=== PATIENT | female | born 1940 | race Hispanic/Latino ===

== ENCOUNTER 2021-04-14 11:01 | Emergency (ER) | payer MEDICARE, OTHER ==
[2021-04-14] MEDS ORDERED: LIDOCAINE VISCOUS 2% 15 ML ORAL LIQD PO ONE (13:11)
[2021-04-14] MEDS ORDERED: FAMOTIDINE 20 MG TAB PO ONE (13:11)
[2021-04-14] MEDS ORDERED: ALUM-MAG HYDROXIDE-SIMETHICONE 200-200-20MG/5ML ORAL LIQD 30 ML PO ONE (13:11)
--- NOTE | 2021-04-14 13:11 | Emergency Department Report ---
- General Chief Complaint: Sore Throat Stated Complaint: SHORT OF BREATH/THROAT PAIN Time Seen by Provider: 04/14/21 12:49 Source: EMS Mode of arrival: Stretcher Limitations: No Limitations - History of Present Illness Initial Comments: Patient is a 80-year-old female presents emergency room with complaints of a sore throat that began last night. She states it feels like a burning sensation as initiated above her. She is still able to swallow. She states that she has some mild shortness of breath but she believes this is due to her sore throat. She denies any fever, chest pain, cough, vomiting, diarrhea, ear pain, throat swelling. She denies any medication allergies. - Related Data Previous Rx's Medication Instructions Recorded Last Taken Type Famotidine [Pepcid] 40 mg PO QHS #14 tablet 04/14/21 Unknown Rx Nystas/Diphen/Xyl Visc/Mylanta 30 ml MM Q4H PRN #300 ml 04/14/21 Unknown Rx [Magic Mouthwash] ED Review of Systems ROS: Stated complaint: SHORT OF BREATH/THROAT PAIN Other details as noted in HPI Comment: All other systems reviewed and negative ED Past Medical Hx - Medications Home Medications: Home Medications Medication Instructions Recorded Confirmed Last Taken Type Famotidine [Pepcid] 40 mg PO QHS #14 tablet 04/14/21 Unknown Rx Nystas/Diphen/Xyl Visc/Mylanta 30 ml MM Q4H PRN #300 ml 04/14/21 Unknown Rx [Magic Mouthwash] ED Physical Exam - General Limitations: No Limitations General appearance: alert, in no apparent distress - Head Head exam: Present: atraumatic, normocephalic - Eye Eye exam: Present: normal appearance - ENT ENT exam: Present: normal orophraynx, mucous membranes moist, TM's normal bilaterally, normal external ear exam - Respiratory Respiratory exam: Present: normal lung sounds bilaterally. Absent: respiratory distress, wheezes, rales, rhonchi, stridor, chest wall tenderness, accessory muscle use, decreased breath sounds, prolonged expiratory - Cardiovascular Cardiovascular Exam: Present: regular rate, normal rhythm, normal heart sounds. Absent: systolic murmur, diastolic murmur, rubs, gallop - Neurological Exam Neurological exam: Present: alert, oriented X3 - Psychiatric Psychiatric exam: Present: normal affect, normal mood - Skin Skin exam: Present: warm, dry, intact ED Course Vital Signs 04/14/21 12:42 Temperature 97.9 F Pulse Rate 76 Respiratory 16 Rate Blood Pressure 134/79 [Right] O2 Sat by Pulse 96 Oximetry ED Medical Decision Making - Lab Data Result diagrams: 04/14/21 13:01 04/14/21 13:01 Lab Results 04/14/21 04/14/21 04/14/21 Range/Units 13:01 13:01 Unknown WBC 2.8 L (4.5-11.0) K/mm3 RBC 4.42 (3.65-5.03) M/mm3 Hgb 12.9 (10.1-14.3) gm/dl Hct 38.5 (30.3-42.9) % MCV 87 (79-97) fl MCH 29 (28-32) pg MCHC 34 (30-34) % RDW 13.8 (13.2-15.2) % Plt Count 156 (140-440) K/mm3 Baso % (Auto) [employer] Developer Add Manual Diff Complete Total Counted 100 Seg Neuts % (Manual) 68.0 (40.0-70.0) % Band Neutrophils % 3.0 % Lymphocytes % (Manual) 15.0 (13.4-35.0) % Monocytes % (Manual) 13.0 H (0.0-7.3) % Basophils % (Manual) 1.0 (0.0-1.8) % Nucleated RBC % 1.0 H (0.0-0.9) % Seg Neutrophils # Man 1.9 (1.8-7.7) K/mm3 Band Neutrophils # 0.1 K/mm3 Lymphocytes # (Manual) 0.4 L (1.2-5.4) K/mm3 Abs React Lymphs (Man) 0.0 K/mm3 Monocytes # (Manual) 0.4 (0.0-0.8) K/mm3 Eosinophils # (Manual) 0.0 (0.0-0.4) K/mm3 Basophils # (Manual) 0.0 (0.0-0.1) K/mm3 Metamyelocytes # 0.0 K/mm3 Myelocytes # 0.0 K/mm3 Promyelocytes # 0.0 K/mm3 Blast Cells # 0.0 K/mm3 WBC Morphology Not Reportable Hypersegmented Neuts Not Reportable Hyposegmented Neuts Not Reportable Hypogranular Neuts Not Reportable Smudge Cells Not Reportable Toxic Granulation Not Reportable Toxic Vacuolation Not Reportable Dohle Bodies Not Reportable Pelger-Huet Anomaly Not Reportable Gina Rods Not Reportable Platelet Estimate Consistent w auto Clumped Platelets Not Reportable Plt Clumps, EDTA Not Reportable Large Platelets Not Reportable Giant Platelets Not Reportable Platelet Satelliting Not Reportable Plt Morphology Comment Not Reportable RBC Morphology Normal Dimorphic RBCs Not Reportable Polychromasia Not Reportable Hypochromasia Not Reportable Poikilocytosis Not Reportable Anisocytosis Not Reportable Microcytosis Not Reportable Macrocytosis Not Reportable Spherocytes Not Reportable Pappenheimer Bodies Not Reportable Sickle Cells Not Reportable Target Cells Not Reportable Tear Drop Cells Not Reportable Ovalocytes Not Reportable Helmet Cells Not Reportable [place] Bodies Not Reportable Melrose Rings Not Reportable Chu Cells Not Reportable Bite Cells Not Reportable Crenated Cell Not Reportable Elliptocytes Not Reportable Acanthocytes (Spur) Not Reportable Rouleaux Not Reportable Hemoglobin C Crystals Not Reportable Schistocytes Not Reportable Malaria parasites Not Reportable Codey Bodies Not Reportable Hem Pathologist Commnt No Sodium 135 L (137-145) mmol/L Potassium 3.5 L (3.6-5.0) mmol/L Chloride 101.4 (98-107) mmol/L Carbon Dioxide 23 (22-30) mmol/L Anion Gap 14 mmol/L BUN 13 (7-17) mg/dL Creatinine 0.7 (0.6-1.2) mg/dL Estimated GFR > 60 ml/min BUN/Creatinine Ratio 19 % Glucose 102 H (65-100) mg/dL Calcium 8.8 (8.4-10.2) mg/dL Total Bilirubin 0.30 (0.1-1.2) mg/dL AST 27 (5-40) units/L ALT 21 (7-56) units/L Alkaline Phosphatase 96 (35-129) units/L Total Protein 6.8 (6.3-8.2) g/dL Albumin 3.9 (3.9-5) g/dL Albumin/Globulin Ratio 1.3 % Group A Strep Rapid Negative (Negative) - Radiology Data Radiology results: report reviewed Ordering Physician: VIKTORIA RIVERA Date of Service: 04/14/21 Procedure(s): XR chest routine 2V Accession Number(s): [id number] cc: VIKTORIA RIVERA Fluoro Time In Minutes: CHEST 2 VIEWS INDICATION / CLINICAL INFORMATION: SOB. COMPARISON: None available. FINDINGS: SUPPORT DEVICES: None. HEART / MEDIASTINUM: No significant abnormality. LUNGS / PLEURA: There is mild increased interstitial prominence within the lungs. Questionable nodular density in the right midlung however this is at the junction of scapula with right rib measuring 6 mm No pneumothorax. ADDITIONAL FINDINGS: No significant additional findings. IMPRESSION: 1. No focal consolidation. Mild increased interstitial prominence. Questionable pulmonary nodule in the right midlung however this could be artifactual. Follow-up chest x-ray recommended. Signer Name: Peewee Soto MD Signed: 04/14/2021 2:51 PM Workstation Name: [id number] Transcribed By: CW Dictated By: CRISTELA SOOT MD Electronically Authenticated By: CRISTELA SOTO MD Signed Date/Time: 04/14/211450 DD/ 49 TD/TT: - Medical Decision Making Patient is a 80-year-old female presents emergency room with complaints of a sore throat that began last night. She states it feels like a burning sensation as initiated above her. She is still able to swallow. She states that she has some mild shortness of breath but she believes this is due to her sore throat. She denies any fever, chest pain, cough, vomiting, diarrhea, ear pain, throat swelling. She denies any medication allergies. Vitals are stable, no tachycardia, no hypoxia, no hypotension. No abnormality on physical examination as documented in chart. Rapid strep is negative. Chest x-ray 1. No focal consolidation. Mild increased interstitial prominence. Questionable pulmonary nodule inv the right midlung however this could be artifactual. Follow-up chest x-ray recommended. Labs with leukopenia and low lymphocytes, could be related to viral infection, otherwise labs are stable. Ordered medication for patient. Symptoms likely related to URI. Discussed supportive care and symptomatic treatment with patient. Patient given prescription for medication. Advised patient Please take medication as prescribed. Follow-up with your primary care doctor for reexamination. Return to emergency room for any new or worsening symptoms. Please discuss with your primary care doctor about the pulmonary nodule on x-ray. I was advised by charge nurse Sulma that patient's personal senior living would not accept her back without a negative Covid-19 test, this hospital facility does not test for COVID-19 in patients that are being discharged, Dr. Jamir Cook, ER attending also spoke with patient's personal senior living[facility] care companion and they are continuing to refuse to accept patient, case management consult placed patient will be holding in the emergency department until case management consultation can be completed. final disposition will be determined by case management. Critical care attestation.: If time is entered above; I have spent that time in minutes in the direct care of this critically ill patient, excluding procedure time. ED Disposition Clinical Impression: Sore throat, Mild shortness of breath, Pulmonary nodule, Hypokalemia Disposition: 01 HOME / SELF CARE / HOMELESS Is pt being admited?: No Does the pt Need Aspirin: No Condition: Stable Instructions: Hypokalemia, Pulmonary Nodule, Wpow-dl-Ooce, Sore Throat Additional Instructions: Please take medication as prescribed. Follow-up with your primary care doctor for reexamination. Return to emergency room for any new or worsening symptoms. Please discuss with your primary care doctor about the pulmonary nodule on x- ray. Prescriptions: Famotidine [Pepcid] 40 mg PO QHS #14 tablet Nystas/Diphen/Xyl Visc/Mylanta [Magic Mouthwash] 30 ml MM Q4H PRN #300 ml PRN Reason: sore throat Referrals: your, primary care doctor [Other] - 2-3 Days Time of Disposition: 15:03 Print Language: WELSH
[2021-04-14 14:06] LABS: Hematocrit 38.5 % (30.3-42.9); Hemoglobin 12.9 gm/dl (10.1-14.3); Mean Corpuscular HGB Conc 34 % (30-34); Mean Corpuscular Volume 87 fl (79-97); Platelet Count 156 K/mm3 (140-440); Red Blood Count 4.42 M/mm3 (3.65-5.03); Red Cell Distribution Width 13.8 % (13.2-15.2)
[2021-04-14 14:21] LABS: Alanine Aminotransferase 21 units/L (7-56); Albumin 3.9 g/dL (3.9-5); Blood Urea Nitrogen 13 mg/dL (7-17); Calcium 8.8 mg/dL (8.4-10.2); Hemolysis Index 36
[2021-04-14 14:45] LABS: BUN/Creatinine Ratio 19
[2021-04-14] MEDS ORDERED: POTASSIUM CHLORIDE ER 20 MEQ TAB PO ONE (14:45)
--- NOTE | 2021-04-14 14:57 | XRay Report ---
CHEST 2 VIEWS INDICATION / CLINICAL INFORMATION: SOB. COMPARISON: None available. FINDINGS: SUPPORT DEVICES: None. HEART / MEDIASTINUM: No significant abnormality. LUNGS / PLEURA: There is mild increased interstitial prominence within the lungs. Questionable nodula r density in the right midlung however this is at the junction of scapula with right rib measuring 6 mm No pneumothorax. ADDITIONAL FINDINGS: No significant additional findings. IMPRESSION: 1. No focal consolidation. Mild increased interstitial prominence. Questionable pulmonary nodule in t he right midlung however this could be artifactual. Follow-up chest x-ray recommended. Signer Name: Peewee Soto MD Signed: 04/14/2021 2:51 PM Workstation Name: [id number]
[2021-04-14 16:37] LABS: Total Cells Counted 100
[2021-04-14 16:38] LABS: Band Neutrophils # (Manual) 0.1 K/mm3; Platelet Estimate Consistent w Auto; RBC Morphology Normal
--- NOTE | 2021-04-14 19:02 | Event Note ---
Face to Face: For this encounter I have reviewed the PA/MOTORCYCLE TESTER documentation, treatment plan, medical decision making, and I had face to face time with this patient. Patient showing no evidence of any emergent condition warranting admission. Likely with upper respiratory infection with and could possibly have COVID-19. 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 I do not believe the patient warrants being kept here overnight for COVID-19 testing since even with a positive test the patient will be stable at this time for discharge. Case management now involved regarding getting the patient sent back to her home
[2021-04-15 11:13] VITALS: BP 158/77
== END 2021-04-15 11:19 | disposition home or self-care (01) ==
LOC: ED 11:01
DX: J02.9 Acute pharyngitis, unspecified (principal); R06.02 Shortness of breath; R91.1 Solitary pulmonary nodule; E87.6 Hypokalemia
CPT/HCPCS: 36415; 71046; 80053; 85007; 85025; 87116; 87430; 99284

== ENCOUNTER 2021-04-15 00:35 | Emergency (ER) | payer MEDICARE, OTHER | END 2021-04-15 04:29 | LOC: ED 00:35 | DX: Z13.9 Encounter for screening, unspecified (principal); Z53.21 Procedure and treatment not carried out due to patient leaving prior to being seen by health care provider ==

== ENCOUNTER 2021-04-20 09:28 | Inpatient (IN) | payer MEDICARE, OTHER ==
--- NOTE | 2021-04-20 10:42 | Emergency Department Report ---
HPI - General Chief Complaint: Chest Pain Time Seen by Provider: 04/20/21 09:42 - HPI HPI: This is an 80-year-old female presents to the emergency department via EMS from home with complaint of a 5-day history of chest discomfort and some altered mental status or lethargy. The patient has history of dementia and currently is AAO x0. She is awake but is just providing grounds or incomprehensible sounds as answers to my questions. Patient was seen here 6 days ago with a complaint of a sore throat, and was found to have a pulmonary nodule and hypokalemia. There were issues with discharge at that time as the patient was not allowed back without a negative to her personal long term without a negative Covid test, which we were unable to provide. Unknown if the patient received anything for her symptoms in route. ED Past Medical Hx - Past Medical History Previous Medical History?: Yes Hx Hypertension: Yes Hx Dementia: Yes - Social History Smoking Status: Unknown if ever smoked - Medications Home Medications: Home Medications Medication Instructions Recorded Confirmed Last Taken Type Famotidine [Pepcid] 40 mg PO QHS #14 tablet 04/14/21 Unknown Rx Nystas/Diphen/Xyl Visc/Mylanta 30 ml MM Q4H PRN #300 ml 04/14/21 Unknown Rx [Magic Mouthwash] ED Review of Systems ROS: Stated complaint: CHEST PAIN Other details as noted in HPI Comment: Unobtainable due to pts medical conditions Physical Exam - Physical Exam Vital Signs: Vital Signs 04/20/21 04/20/21 04/20/21 09:42 09:57 10:00 Temperature 98 F Pulse Rate 60 Respiratory 16 Rate Blood Pressure 175/71 Blood Pressure 175/71 [Left] O2 Sat by Pulse 100 99 98 Oximetry 04/20/21 10:16 Temperature Pulse Rate 55 L Respiratory 14 Rate Blood Pressure 192/69 Blood Pressure [Left] O2 Sat by Pulse 97 Oximetry Physical Exam: GENERAL: The patient is frail and ill-appearing. HENT: Normocephalic. Atraumatic. Patient has moist mucous membranes. EYES: Extraocular motions are intact. NECK: Supple. Trachea is midline. CHEST/LUNGS: Clear to auscultation. There is no respiratory distress noted. HEART/CARDIOVASCULAR: Regular. There is no tachycardia. There is no murmur. ABDOMEN: Abdomen is soft, nontender. Patient has normal bowel sounds. There is no abdominal distention. SKIN: Skin is warm and dry. NEURO: The patient is awake but confused. AAO x0. Patient is occasionally making grunting sounds. Not following commands. MUSCULOSKELETAL: There is no tenderness or deformity. ED Course Vital Signs 04/20/21 04/20/21 04/20/21 09:42 09:57 10:00 Temperature 98 F Pulse Rate 60 Respiratory 16 Rate Blood Pressure 175/71 Blood Pressure 175/71 [Left] O2 Sat by Pulse 100 99 98 Oximetry 04/20/21 10:16 Temperature Pulse Rate 55 L Respiratory 14 Rate Blood Pressure 192/69 Blood Pressure [Left] O2 Sat by Pulse 97 Oximetry ED Medical Decision Making - Lab Data Result diagrams: 04/20/21 11:04 04/20/21 11:04 Lab Results 04/20/21 04/20/21 04/20/21 Range/Units 11:04 11:04 11:04 WBC 1.9 L* (4.5-11.0) K/mm3 RBC 4.46 (3.65-5.03) M/mm3 Hgb 13.1 (10.1-14.3) gm/dl Hct 38.3 (30.3-42.9) % MCV 86 (79-97) fl MCH 30 (28-32) pg MCHC 34 (30-34) % RDW 13.4 (13.2-15.2) % Plt Count 127 L (140-440) K/mm3 [place] % (Auto) Cottage Cheese Maker Sodium 141 (137-145) mmol/L Potassium 3.5 L (3.6-5.0) mmol/L Chloride 105.1 (98-107) mmol/L Carbon Dioxide 24 (22-30) mmol/L Anion Gap 15 mmol/L BUN 21 H (7-17) mg/dL Creatinine 0.6 (0.6-1.2) mg/dL Estimated GFR > 60 ml/min BUN/Creatinine Ratio 35 % Glucose 112 H (65-100) mg/dL Lactic Acid (0.7-2.0) mmol/L Calcium 9.0 (8.4-10.2) mg/dL Total Bilirubin 0.60 (0.1-1.2) mg/dL AST 62 H (5-40) units/L ALT 36 (7-56) units/L Alkaline Phosphatase 75 (35-129) units/L Ammonia 30.0 (25-60) umol/L Troponin T < 0.010 (0.00-0.029) ng/mL Total Protein 6.8 (6.3-8.2) g/dL Albumin 3.5 L (3.9-5) g/dL Albumin/Globulin Ratio 1.1 % TSH (0.270-4.200) mlU/mL Urine Opiates Screen Urine Methadone Screen Ur Barbiturates Screen Ur Phencyclidine Scrn Ur Amphetamines Screen U Benzodiazepines Scrn Urine Cocaine Screen U Marijuana (THC) Screen Drugs of Abuse Note 04/20/21 04/20/21 04/20/21 Range/Units 11:04 12:20 13:13 WBC (4.5-11.0) K/mm3 RBC (3.65-5.03) M/mm3 Hgb (10.1-14.3) gm/dl Hct (30.3-42.9) % MCV (79-97) fl MCH (28-32) pg MCHC (30-34) % RDW (13.2-15.2) % Plt Count (140-440) K/mm3 [place] % (Auto) Sodium (137-145) mmol/L Potassium (3.6-5.0) mmol/L Chloride (98-107) mmol/L Carbon Dioxide (22-30) mmol/L Anion Gap mmol/L BUN (7-17) mg/dL Creatinine (0.6-1.2) mg/dL Estimated GFR ml/min BUN/Creatinine Ratio % Glucose (65-100) mg/dL Lactic Acid 1.80 (0.7-2.0) mmol/L Calcium (8.4-10.2) mg/dL Total Bilirubin (0.1-1.2) mg/dL AST (5-40) units/L ALT (7-56) units/L Alkaline Phosphatase (35-129) units/L Ammonia (25-60) umol/L Troponin T < 0.010 (0.00-0.029) ng/mL Total Protein (6.3-8.2) g/dL Albumin (3.9-5) g/dL Albumin/Globulin Ratio % TSH 1.720 (0.270-4.200) mlU/mL Urine Opiates Screen Urine Methadone Screen Ur Barbiturates Screen Ur Phencyclidine Scrn Ur Amphetamines Screen U Benzodiazepines Scrn Urine Cocaine Screen U Marijuana (THC) Screen Drugs of Abuse Note 04/20/21 Range/Units Unknown WBC (4.5-11.0) K/mm3 RBC (3.65-5.03) M/mm3 Hgb (10.1-14.3) gm/dl Hct (30.3-42.9) % MCV (79-97) fl MCH (28-32) pg MCHC (30-34) % RDW (13.2-15.2) % Plt Count (140-440) K/mm3 [place] % (Auto) Sodium (137-145) mmol/L Potassium (3.6-5.0) mmol/L Chloride (98-107) mmol/L Carbon Dioxide (22-30) mmol/L Anion Gap mmol/L BUN (7-17) mg/dL Creatinine (0.6-1.2) mg/dL Estimated GFR ml/min BUN/Creatinine Ratio % Glucose (65-100) mg/dL Lactic Acid (0.7-2.0) mmol/L Calcium (8.4-10.2) mg/dL Total Bilirubin (0.1-1.2) mg/dL AST (5-40) units/L ALT (7-56) units/L Alkaline Phosphatase (35-129) units/L Ammonia (25-60) umol/L Troponin T (0.00-0.029) ng/mL Total Protein (6.3-8.2) g/dL Albumin (3.9-5) g/dL Albumin/Globulin Ratio % TSH (0.270-4.200) mlU/mL Urine Opiates Screen Negative Urine Methadone Screen Negative Ur Barbiturates Screen Negative Ur Phencyclidine Scrn Negative Ur Amphetamines Screen Negative U Benzodiazepines Scrn Negative Urine Cocaine Screen Negative U Marijuana (THC) Screen Negative Drugs of Abuse Note Disclamer - EKG Data -: EKG Interpreted by Hi EKG shows normal: sinus rhythm, axis, intervals, QRS complexes, ST-T waves Rate: bradycardia (56 bpm) - EKG Data When compared to previous EKG there are: previous EKG unavailable Interpretation: normal EKG - Radiology Data Radiology results: report reviewed XR chest 1V ap INDICATION / CLINICAL INFORMATION: CP COMPARISON: 04/14/2021 FINDINGS: SUPPORT DEVICES: None. HEART / MEDIASTINUM: No significant abnormality. LUNGS / PLEURA: Bilateral lung opacities most pronounced in left lower lung zone. Costophrenic sulci are sharp. No pneumothorax. ADDITIONAL FINDINGS: No significant additional findings. IMPRESSION: 1. New airspace disease most pronounced in left lower lung zone. Correlate for pneumonia. CT head/brain wo con INDICATION: AMS. TECHNIQUE: Routine CT head. All CT scans at this location are performed using CT dose reduction for ALARA by means of automated exposure control. COMPARISON: None. FINDINGS: Intracranial: Encephalom alacia in the right occipital lobe, likely from remote infarction. Dunbar- white matter differentiation is maintained. No intracranial hemorrhage. No extra axial collection. No hydrocephalus. No herniation. Periventricular and centrum semiovale white matter hypoattenuation most consistent with sequela of chronic microvascular disease. Sinuses: Paranasal sinuses and mastoid air cells are essentially clear. Orbits: Globes are intact. Calvarium: No acute fracture. IMPRESSION: 1. No acute intracranial abnormality. 2. Remote right occipital infarction. - Medical Decision Making This patient presents to the emergency department from her personal long term with the alleged complaint of chest pain and altered mental status. It is hard to confirm any chest pain given the patient's history of dementia and her current mental status of AAO x0. However it does appear that the patient's mental status has worsened since she was last here 6 days ago, because at that time the chart showed that the patient was answering questions about her visit that day. CT scan of the head without contrast does not show any hemorrhage, large vessel occlusion, or any other acute process. Chest x-ray shows development of left lower lobe pneumonia, when compared to the chest x-ray from 6 days ago. The patient's labs shows worsening leukopenia with a white blood cell count of 1.9, slightly worsening thrombocytopenia. The patient has developed some mild transaminitis with an AST of 62. We are still waiting for urinalysis to see if the patient has developed a urinary tract infection. Patient has had a labile blood pressure. Initially she presented with almost hypertensive urgency reaching as high as a systolic of 190. At one point, in the middle of her ED course, the patient systolic blood pressure dropped to about 50. Patient was given 500 cc bolus and placed on 125 cc/h and her blood pressure is 1's again has once again elevated to hypertension. Given the worsening leukopenia and the development of the pneumonia, as well as the mild transaminitis, the patient has been made a person under investigation for COVID-19. No hypoxia. She has been given a dose of antibiotics. The patient will be admitted to the hospital for further evaluation and treatm ent was accepted for admission by the hospitalist, Dr. Young. Critical Care Time: No Critical care attestation.: If time is entered above; I have spent that time in minutes in the direct care of this critically ill patient, excluding procedure time. ED Disposition Clinical Impression: Encephalopathy, Suspected 2019 novel coronavirus infection, Thrombocytopenia Pneumonia Qualifiers: Pneumonia type: due to unspecified organism Laterality: left Lung location: lower lobe of lung Qualified Code(s): J18.9 - Pneumonia, unspecified organism Leukopenia Qualifiers: Leukopenia type: unspecified Qualified Code(s): D72.819 - Decreased white blood cell count, unspecified Disposition: 01 HOME / SELF CARE / HOMELESS Is pt being admited?: Yes Condition: Fair Instructions: Bacterial Pneumonia (ED) Time of Disposition: 16:10
--- NOTE | 2021-04-20 11:09 | XRay Report ---
XR chest 1V ap INDICATION / CLINICAL INFORMATION: CP COMPARISON: 04/14/2021 FINDINGS: SUPPORT DEVICES: None. HEART / MEDIASTINUM: No significant abnormality. LUNGS / PLEURA: Bilateral lung opacities most pronounced in left lower lung zone. Costophrenic sulci are sharp. No pneumothorax. ADDITIONAL FINDINGS: No significant additional findings. IMPRESSION: 1. New airspace disease most pronounced in left lower lung zone. Correlate for pneumonia. Signer Name: Gentry Eduardo MD Signed: 04/20/2021 11:04 AM Workstation Name: [id number]
[2021-04-20 11:28] LABS: Hematocrit 38.3 % (30.3-42.9); Hemoglobin 13.1 gm/dl (10.1-14.3); Mean Corpuscular HGB Conc 34 % (30-34); Mean Corpuscular Volume 86 fl (79-97); Platelet Count 127 K/mm3 (140-440); Red Blood Count 4.46 M/mm3 (3.65-5.03); Red Cell Distribution Width 13.4 % (13.2-15.2)
[2021-04-20] MEDS ORDERED: SODIUM CHLORIDE 0.9% 1000 ML 1,000 ML ONE (11:51)
[2021-04-20] MEDS ORDERED: SODIUM CHLORIDE 0.9% 500 ML 500 ML IV ONE (11:53)
[2021-04-20 12:05] LABS: Alanine Aminotransferase 36 units/L (7-56); Albumin 3.5 g/dL (3.9-5); Blood Urea Nitrogen 21 mg/dL (7-17); Hemolysis Index 28
[2021-04-20 12:08] LABS: BUN/Creatinine Ratio 35
--- NOTE | 2021-04-20 12:42 | Cat Scan Report ---
CT head/brain wo con INDICATION: AMS. TECHNIQUE: Routine CT head. All CT scans at this location are performed using CT dose reduction for A FERNANDA by means of automated exposure control. COMPARISON: None. FINDINGS: Intracranial: Encephalomalacia in the right occipital lobe, likely from remote infarction. Dunbar-white matter differentiation is maintained. No intracranial hemorrhage. No extra axial collection. No hydr ocephalus. No herniation. Periventricular and centrum semiovale white matter hypoattenuation most con sistent with sequela of chronic microvascular disease. Sinuses: Paranasal sinuses and mastoid air cells are essentially clear. Orbits: Globes are intact. Calvarium: No acute fracture. IMPRESSION: 1. No acute intracranial abnormality. 2. Remote right occipital infarction. Signer Name: Gentry Eduardo MD Signed: 04/20/2021 12:38 PM Workstation Name: [id number]
[2021-04-20] MEDS ORDERED: SODIUM CHLORIDE 0.9% 1000 ML 1,000 ML IV ONE ×2 (13:56→19:00)
[2021-04-20 15:05] LABS: Amphetamine Screen,Urine Negative; Benzodiazepines Screen,Urine Negative; Cannabinoid Screen,Urine Negative; Cocaine Screen,Urine Negative; Methadone Screen,Urine Negative; Opiate Screen,Urine Negative
[2021-04-20] MEDS ORDERED: cefTRIAXone/NS 1 GM/50 ML 1 GM/50 ML BAG IV ONE (15:23)
--- NOTE | 2021-04-20 15:35 | History and Physical Report ---
History of Present Illness Date of examination: 04/20/21 Date of admission: 04/20/21 Chief complaint: AMS History of present illness: This is an 80-year-old female with a history of hypertension and dementia presents to the emergency department via EMS from assisted living with complaint of a 5-day history of chest discomfort, altered mental status, lethargy. Few d ays back she came to the ER with complaining of sore throat and found to have pulmonary nodules and hypokalemia. Today patient appears to be very lethargic and unable to provide any history. In the ER, patient noted to have temperature of 100, HR 60, RR 16, O2 sat 100%, BP 175/71, WBC 1.9, Hemoglobin 13.1, Platelets 127, D-dimer 589, CRP 3.4. Ferritin 839. CT chest shows no PE, and noted multifocal pneumonia. Covid test has been ordered and patient is being admitted for altered mental status and Covid PUI. Patient was given 1 dose of Zithromax and Rocephin in the ER. Review of Systems: Unable to obtain as patient is very lethargic. Past History Past Medical History: hypertension, other (Dementia) Past Surgical History: Other (Unknown) Social history: other (Lives in assisted living facility) Family history: other (Unknown) Medications and Allergies Allergies Allergy/AdvReac Type Severity Reaction Status Date / Time No Known Allergies Allergy Verified 04/20/21 09:42 Home Medications Medication Instructions Recorded Confirmed Last Taken Type Famotidine [Pepcid] 40 mg PO QHS #14 tablet 04/14/21 04/22/21 04/20/21 22:00 Rx Nystas/Diphen/Xyl Visc/Mylanta 30 ml MM Q4H PRN #300 ml 04/14/21 04/22/21 04/20/21 Rx [Magic Mouthwash] Active Meds: Active Medications Sodium Chloride (Nacl 0.9% 1000 Ml) 1,000 mls @ 125 mls/hr IV ONCE ONE Stop: 04/20/21 21:55 Last Admin: 04/20/21 14:20 Dose: 125 mls/hr Documented by: Ceftriaxone Sodium (Rocephin/Ns 1 Gm/50 Ml) 1 gm in 50 mls @ 100 mls/hr IV ONCE ONE; Protocol Stop: 04/20/21 15:52 Exam - Physical Exam Narrative exam: Limited physical exam due to COVID-19 pandemic to minimize transmission of the disease and to preserve PPE. Vital reviewed and stable. GENERAL: Elderly malnourished -[place] female lying on bed appeared to be very lethargic HEENT: Normocephalic. Atraumatic. NECK: Supple. CHEST/LUNGS: breathing nonlabored. HEART/CARDIOVASCULAR: Heart rate stable on telemetry ABDOMEN: Visibly not distended SKIN: There is no rash NEURO: Moves extremities, nonverbal MUSCULOSKELETAL: No joint effusion EXTRIMITY: No swelling, no cyanosis or clubbing. PSYCH: Unable to assess . - Constitutional Vitals: Temp Pulse Resp BP Pulse Ox 98 F 55 L 16 192/69 98 04/20/21 09:42 04/20/21 10:16 04/20/21 10:23 04/20/21 10:16 04/20/21 10:23 HEART Score - HEART Score Troponin: WBC 1.9 K/mm3 (4.5-11.0) L* 04/20/21 11:04 RBC 4.46 M/mm3 (3.65-5.03) 04/20/21 11:04 Hgb 13.1 gm/dl (10.1-14.3) 04/20/21 11:04 Hct 38.3 % (30.3-42.9) 04/20/21 11:04 MCV 86 fl (79-97) 04/20/21 11:04 MCH 30 pg (28-32) 04/20/21 11:04 MCHC 34 % (30-34) 04/20/21 11:04 RDW 13.4 % (13.2-15.2) 04/20/21 11:04 Plt Count 127 K/mm3 (140-440) L 04/20/21 11:04 [place] % (Auto) Tissue Specialist 04/20/21 11:04 Sodium 141 mmol/L (137-145) 04/20/21 11:04 Potassium 3.5 mmol/L (3.6-5.0) L 04/20/21 11:04 Chloride 105.1 mmol/L (98-107) 04/20/21 11:04 Carbon Dioxide 24 mmol/L (22-30) 04/20/21 11:04 Anion Gap 15 mmol/L 04/20/21 11:04 BUN 21 mg/dL (7-17) H 04/20/21 11:04 Creatinine 0.6 mg/dL (0.6-1.2) 04/20/21 11:04 Estimated GFR > 60 ml/min 04/20/21 11:04 BUN/Creatinine Ratio 35 % 04/20/21 11:04 Glucose 112 mg/dL (65-100) H 04/20/21 11:04 Lactic Acid 1.80 mmol/L (0.7-2.0) 04/20/21 12:20 Calcium 9.0 mg/dL (8.4-10.2) 04/20/21 11:04 Total Bilirubin 0.60 mg/dL (0.1-1.2) 04/20/21 11:04 AST 62 units/L (5-40) H 04/20/21 11:04 ALT 36 units/L (7-56) 04/20/21 11:04 Alkaline Phosphatase 75 units/L (35-129) 04/20/21 11:04 Ammonia 30.0 umol/L (25-60) 04/20/21 11:04 Troponin T < 0.010 ng/mL (0.00-0.029) 04/20/21 13:13 Total Protein 6.8 g/dL (6.3-8.2) 04/20/21 11:04 Albumin 3.5 g/dL (3.9-5) L 04/20/21 11:04 Albumin/Globulin Ratio 1.1 % 04/20/21 11:04 TSH 1.720 mlU/mL (0.270-4.200) 04/20/21 11:04 Urine Opiates Screen Negative 04/20/21 Unknown Urine Methadone Screen Negative 04/20/21 Unknown Ur Barbiturates Screen Negative 04/20/21 Unknown Ur Phencyclidine Scrn Negative 04/20/21 Unknown Ur Amphetamines Screen Negative 04/20/21 Unknown U Benzodiazepines Scrn Negative 04/20/21 Unknown Urine Cocaine Screen Negative 04/20/21 Unknown U Marijuana (THC) Screen Negative 04/20/21 Unknown Drugs of Abuse Note Disclamer 04/20/21 Unknown Results - Labs CBC & Chem 7: 04/21/21 05:01 04/22/21 03:26 Labs: Abnormal lab results 04/20/21 04/20/21 Range/Units 11:04 11:04 WBC 1.9 L* (4.5-11.0) K/mm3 Plt Count 127 L (140-440) K/mm3 Potassium 3.5 L (3.6-5.0) mmol/L BUN 21 H (7-17) mg/dL Glucose 112 H (65-100) mg/dL AST 62 H (5-40) units/L Albumin 3.5 L (3.9-5) g/dL - Imaging and Cardiology Chest x-ray: report reviewed ( 1. New airspace disease most pronounced in left lower lung zone. Correlate for pneumonia. ) CT scan - chest: report reviewed ( 1. No CT evidence for pulmonary embolism. ) CT Scan - head: report reviewed (No acute abnormality, remote right occipital lobe infarction) Assessment and Plan Acute metabolic encephalopathy -Likely due to underlying infection and with dementia -CT head showed no acute infarct but remote right occipital infarction -Continue to provide supportive care, monitor clinically with frequent neuro checks LLB PNA, likely aspiration vs COVID PUI -Covid test has been ordered, continue empiric antibiotics for now HTN, uncontrolled -Resume home medications when able to tolerate p.o., for now we will continue clonidine patch and IV hydralazine as needed to keep SBP less than 160 Dementia, supportive care, frequent neuro check Hypokalemia, continue to replete, monitor BMP Leukopenia and thrombocytopenia, likely due to underlying infection versus ch ronic -Continue to monitor CBC Severe protein calorie malnutrition, consult dietary, add supplements DVT prophylaxis, SCD. No heparin or Lovenox for thrombocytopenia
[2021-04-20 16:24] LABS: C-Reactive Protein 1.2 mg/dL (0.00-1.30)
[2021-04-20] MEDS: AZITHROMYCIN/NS 500 MG/250 ML 500 MG/250 ML BAG IV SCH (16:53)
[2021-04-20] MEDS ORDERED: hydrALAZINE 20 MG/1 ML INJ IV PRN (17:00)
[2021-04-20] MEDS ORDERED: ACETAMINOPHEN 325 MG TAB PO PRN (17:00)
[2021-04-20 17:47] LABS: Platelet Estimate Consistent w Auto; Total Cells Counted 100
[2021-04-20 18:36] LABS: Bilirubin,Urine NEG (Negative); Blood,Urine MOD (Negative); Color,Urine Yellow (Yellow); Mucus,Urine 2+ /HPF
[2021-04-20] MEDS: cefTRIAXone/NS 1 GM/50 ML 1 GM/50 ML BAG IV SCH (19:53)
[2021-04-20] MEDS: MIDODRINE 5 MG TAB PO SCH (20:17)
[2021-04-20] MEDS ORDERED: HEPARIN 5,000 UNIT/1 ML VIAL SUB-Q SCH (22:00)
[2021-04-20] MEDS ORDERED: cefTRIAXone/NS 1 GM/50 ML 1 GM/50 ML BAG IV SCH (22:00)
--- NOTE | 2021-04-20 22:25 | Cat Scan Report ---
CTA CHEST WITH CONTRAST INDICATION / CLINICAL INFORMATION: Elevated D-dimer. TECHNIQUE: Axial CT images were obtained through the chest after injection of IV contrast. 3 plane [place] P and/or 3D reconstructions were produced. All CT scans at this location are performed using CT dose reduction for ALARA by means of automated exposure control. COMPARISON: This radiograph earlier same day FINDINGS: PULMONARY ARTERIES: Allowing for patient respiratory motion artifact, negative for acute pulmonary em boli. The distal subsegmental branches of the bilateral lower lobes are not well visualized. THORACIC AORTA: Moderate atherosclerotic calcification without acute abnormality. HEART: Mildly enlarged CORONARY ARTERY CALCIFICATION: Multivessel MEDIASTINUM / JOSE MIGUEL: No significant abnormality. PLEURA: No pleural effusion. No pneumothorax. LUNGS: Patchy subpleural reticular opacities involving the lingula and bilateral lower lobes. ADDITIONAL FINDINGS: None. UPPER ABDOMEN: No acute findings. SKELETAL STRUCTURES: No significant osseous abnormality. IMPRESSION: 1. No CT evidence for pulmonary embolism. 2. Multilobar pneumonia, concerning for viral etiology. Pneumonia is worse within the bilateral lower lobes. 3. Other chronic findings as above. Signer Name: Edgardo Barnes MD Signed: 04/20/2021 10:20 PM Workstation Name: [id number]
[2021-04-20] MEDS: POTASSIUM CHLORIDE ER 10 MEQ TAB PO SCH (23:29)
[2021-04-20] MEDS: FAMOTIDINE 10 MG TAB PO SCH (23:29)
[2021-04-21 05:32] LABS: Hematocrit 37.3 % (30.3-42.9); Hemoglobin 12.7 gm/dl (10.1-14.3); Mean Corpuscular HGB Conc 34 % (30-34); Mean Corpuscular Volume 87 fl (79-97); Platelet Count 120 K/mm3 (140-440); Red Blood Count 4.31 M/mm3 (3.65-5.03); Red Cell Distribution Width 13.1 % (13.2-15.2)
[2021-04-21 05:52] LABS: Blood Urea Nitrogen 16 mg/dL (7-17); Calcium 8.5 mg/dL (8.4-10.2); Hemolysis Index 8
[2021-04-21 06:05] LABS: BUN/Creatinine Ratio 27
[2021-04-21 07:19] LABS: Band Neutrophils # (Manual) 0.1 K/mm3; Platelet Estimate Consistent w Auto; RBC Morphology Normal; Total Cells Counted 100
[2021-04-21] MEDS: MIDODRINE 5 MG TAB PO SCH ×3 (08:00→17:19)
--- NOTE | 2021-04-21 09:09 | Electrocardiograph Report ---
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
--- NOTE | 2021-04-21 12:54 | Progress Note ---
Assessment and Plan Acute metabolic encephalopathy -Likely due to underlying infection and with dementia -CT head showed no acute infarct but remote right occipital infarction -Continue to provide supportive care, monitor clinically with frequent neuro checks LLB PNA, likely aspiration vs COVID PUI -Covid test has been ordered, continue empiric antibiotics for now HTN, uncontrolled -Resume home medications when able to tolerate p.o., for now we will continue clonidine patch and IV hydralazine as needed to keep SBP less than 160 Dementia, supportive care, frequent neuro check Hypokalemia, continue to replete, monitor BMP Leukopenia and thrombocytopenia, likely due to underlying infection versus chronic -Continue to monitor CBC Severe protein calorie malnutrition, consult dietary, add supplements DVT prophylaxis, SCD. No heparin or Lovenox for thrombocytopenia Daily Clinical course: 04/21: Continue to replete KCl, Covid test is pending. Continue empiric antibiotics for now. Follow procalcitonin level. Subjective Date of service: 04/21/21 Interval history: Patient seen and examined. Medical records and medication list reviewed. No acute event overnight noted by the RN. Patient remains lethargic, Covid test pending Discussed plan of care at bedside with patient's RN. Objective - Exam Narrative Exam: Limited physical exam due to COVID-19 pandemic to minimize transmission of the disease and to preserve PPE. Vital reviewed and stable. GENERAL: Elderly malnourished -[place] female lying on bed appeared to be very lethargic HEENT: Normocephalic. Atraumatic. NECK: Supple. CHEST/LUNGS: breathing nonlabored. HEART/CARDIOVASCULAR: Heart rate stable on telemetry ABDOMEN: Visibly not distended SKIN: There is no rash NEURO: Moves extremities, nonverbal MUSCULOSKELETAL: No joint effusion EXTRIMITY: No swelling, no cyanosis or clubbing. PSYCH: Unable to assess . - Constitutional Vitals: Vital Signs - 12hr 04/21/21 04/21/21 04/21/21 01:00 01:16 01:30 Pulse Rate 70 53 L 59 L Respiratory 13 20 17 Rate Blood Pressure 120/70 120/70 120/70 Blood Pressure [Left] O2 Sat by Pulse 97 96 95 Oximetry 04/21/21 04/21/21 04/21/21 01:46 02:00 02:16 Pulse Rate 49 L 51 L 54 L Respiratory 20 17 17 Rate Blood Pressure 120/70 93/67 93/67 Blood Pressure [Left] O2 Sat by Pulse 96 97 96 Oximetry 04/21/21 04/21/21 04/21/21 02:30 02:46 03:00 Pulse Rate 54 L 55 L 57 L Respiratory 23 16 16 Rate Blood Pressure 120/70 120/70 93/67 Blood Pressure [Left] O2 Sat by Pulse 96 96 98 Oximetry 04/21/21 04/21/21 04/21/21 03:16 03:30 03:46 Pulse Rate 66 58 L 46 L Respiratory 18 21 22 Rate Blood Pressure 93/67 93/67 93/67 Blood Pressure [Left] O2 Sat by Pulse 97 98 96 Oximetry 04/21/21 04/21/21 04/21/21 04:00 04:16 04:30 Pulse Rate 51 L 55 L 57 L Respiratory 22 21 19 Rate Blood Pressure 65/35 65/35 65/35 Blood Pressure [Left] O2 Sat by Pulse 98 97 Oximetry 04/21/21 04/21/21 04/21/21 04:46 05:00 05:16 Pulse Rate 49 L 49 L 52 L Respiratory 21 22 18 Rate Blood Pressure 114/64 113/68 113/68 Blood Pressure [Left] O2 Sat by Pulse 96 97 95 Oximetry 04/21/21 04/21/21 04/21/21 05:30 05:46 06:00 Pulse Rate 51 L 51 L 51 L Respiratory 21 23 22 Rate Blood Pressure 113/68 113/68 164/63 Blood Pressure [Left] O2 Sat by Pulse 96 97 98 Oximetry 04/21/21 04/21/21 04/21/21 06:16 06:30 06:46 Pulse Rate 56 L 58 L 59 L Respiratory 22 22 22 Rate Blood Pressure 164/63 164/63 164/63 Blood Pressure [Left] O2 Sat by Pulse 98 97 98 Oximetry 04/21/21 04/21/21 04/21/21 07:00 07:46 08:00 Pulse Rate 62 49 L 49 L Respiratory 26 H 22 22 Rate Blood Pressure 164/63 164/63 60/26 Blood Pressure [Left] O2 Sat by Pulse 99 98 97 Oximetry 04/21/21 08:05 Pulse Rate Respiratory Rate Blood Pressure Blood Pressure 168/67 [Left] O2 Sat by Pulse Oximetry - Labs CBC & Chem 7: 04/21/21 05:01 04/22/21 03:26 Labs: Abnormal lab results 04/20/21 04/20/21 04/20/21 Range/Units 11:04 15:51 15:51 WBC (4.5-11.0) K/mm3 RDW (13.2-15.2) % Plt Count (140-440) K/mm3 Monocytes % (Manual) 11.0 H (0.0-7.3) % Seg Neutrophils # Man 1.2 L (1.8-7.7) K/mm3 Lymphocytes # (Manual) 0.4 L (1.2-5.4) K/mm3 D-Dimer 589.61 H (0-234) ng/mlDDU Potassium (3.6-5.0) mmol/L Ferritin 778.9 H (10.0-200.0) ng/mL Lactate Dehydrogenase (91-180) units/L 04/20/21 04/21/21 04/21/21 Range/Units 15:51 05:01 05:01 WBC 2.7 L (4.5-11.0) K/mm3 RDW 13.1 L (13.2-15.2) % Plt Count 120 L (140-440) K/mm3 Monocytes % (Manual) 12.0 H (0.0-7.3) % Seg Neutrophils # Man (1.8-7.7) K/mm3 Lymphocytes # (Manual) 0.4 L (1.2-5.4) K/mm3 D-Dimer (0-234) ng/mlDDU Potassium 3.2 L (3.6-5.0) mmol/L Ferritin (10.0-200.0) ng/mL Lactate Dehydrogenase 331 H (91-180) units/L HEART Score - HEART Score Troponin: Troponin T < 0.010 ng/mL (0.00-0.029) 04/20/21 15:51
[2021-04-21] MEDS: DEXAMETHASONE 2 MG TAB PO SCH (17:00)
[2021-04-21] MEDS: POTASSIUM CHLORIDE ER 10 MEQ TAB PO SCH (17:00)
[2021-04-21] MEDS: AZITHROMYCIN/NS 500 MG/250 ML 500 MG/250 ML BAG IV SCH (17:01)
[2021-04-21] MEDS: FAMOTIDINE 10 MG TAB PO SCH ×2 (17:02→22:36)
[2021-04-21] MEDS: SODIUM CHLORIDE 0.9% 1000 ML 1,000 ML IV SCH (17:02)
[2021-04-21] MEDS: cefTRIAXone/NS 1 GM/50 ML 1 GM/50 ML BAG IV SCH (20:03)
[2021-04-22 04:34] LABS: Blood Urea Nitrogen 16 mg/dL (7-17); Hemolysis Index 28
[2021-04-22 04:44] LABS: BUN/Creatinine Ratio 32
[2021-04-22] MEDS: SODIUM CHLORIDE 0.9% 1000 ML 1,000 ML IV SCH ×2 (07:30→22:03)
[2021-04-22] MEDS: MIDODRINE 5 MG TAB PO SCH ×2 (08:37→12:22)
[2021-04-22] MEDS ORDERED: hydrALAZINE 25 MG TAB PO SCH (09:00)
[2021-04-22 10:31] LABS: C-Reactive Protein 3.4 mg/dL (0.00-1.30)
[2021-04-22] MEDS: DEXAMETHASONE 2 MG TAB PO SCH (10:41)
[2021-04-22] MEDS: POTASSIUM CHLORIDE ER 10 MEQ TAB PO SCH (10:42)
[2021-04-22] MEDS: FAMOTIDINE 10 MG TAB PO SCH ×2 (10:42→22:02)
--- NOTE | 2021-04-22 14:13 | Progress Note ---
Assessment and Plan Acute metabolic encephalopathy -Likely due to underlying infection and with dementia -CT head showed no acute infarct but remote right occipital infarction -Continue to provide supportive care, monitor clinically with frequent neuro checks LLB PNA, likely aspiration vs COVID 19 pneumonia -Covid test is positive, DC empiric antibiotics as procalcitonin level <0.25 -No need for dexamethasone on remdesivir as patient resting on room air -Continue to follow inflammatory markers, ID following HTN, uncontrolled -Resume home medications when able to tolerate p.o., for now we will continue clonidine patch and IV hydralazine as needed to keep SBP less than 160 Dementia, supportive care, frequent neuro check Hypokalemia, continue to replete, monitor BMP Leukopenia and thrombocytopenia, likely due to underlying infection versus chron ic -Continue to monitor CBC Severe protein calorie malnutrition, consult dietary, add supplements DVT prophylaxis, SCD. No heparin or Lovenox for thrombocytopenia Daily Clinical course: 04/21: Continue to replete KCl, Covid test is pending. Continue empiric antibiotics for now. Follow procalcitonin level. 04/22/21; patient resting on room air, inflammatory markers are stable. Procalcitonin is normal -we will d/c abx. Discussed with patient nephew with POA. Patient has very advanced dementia with 28/02 care. According to patient's POA Mr. Badillo patient's symptom has been deteriorated in the last few months. They are willing for hospice placement, order placed. Subjective Date of service: 04/22/21 Interval history: Patient seen and examined. Medical records and medication list reviewed. No acute event overnight noted by the RN. Patient appears alert today but remains nonverbal, Covid test is positive Discussed plan of care at bedside with patient's RN. Objective - Exam Narrative Exam: Limited physical exam due to COVID-19 pandemic to minimize transmission of the disease and to preserve PPE. Vital reviewed and stable. GENERAL: Elderly malnourished -[place] female lying on bed without any distress HEENT: Normocephalic. Atraumatic. NECK: Supple. CHEST/LUNGS: breathing nonlabored. HEART/CARDIOVASCULAR: Heart rate stable on telemetry ABDOMEN: Visibly not distended SKIN: There is no rash NEURO: Moves extremities, very confused MUSCULOSKELETAL: No joint effusion EXTRIMITY: No swelling, no cyanosis or clubbing. PSYCH: Not oriented to place person or time . - Constitutional Vitals: Vital Signs - 12hr 04/22/21 04:34 Temperature 98.4 F Pulse Rate 54 L Respiratory 22 Rate Blood Pressure 167/63 O2 Sat by Pulse 94 Oximetry - Labs CBC & Chem 7: 04/21/21 05:01 04/22/21 03:26 Labs: Abnormal lab results 04/21/21 04/22/21 04/22/21 Range/Units 08:43 03:26 09:42 D-Dimer 593.00 H (0-234) ng/mlDDU Potassium 3.3 L (3.6-5.0) mmol/L Creatinine 0.5 L (0.6-1.2) mg/dL Calcium 8.0 L (8.4-10.2) mg/dL Ferritin (10.0-200.0) ng/mL Lactate Dehydrogenase (91-180) units/L C-Reactive Protein (0.00-1.30) mg/dL Coronavirus (PCR) Positive A (Negative) 04/22/21 04/22/21 Range/Units 09:42 09:42 D-Dimer (0-234) ng/mlDDU Potassium (3.6-5.0) mmol/L Creatinine (0.6-1.2) mg/dL Calcium (8.4-10.2) mg/dL Ferritin 839.7 H (10.0-200.0) ng/mL Lactate Dehydrogenase 351 H (91-180) units/L C-Reactive Protein 3.40 H (0.00-1.30) mg/dL Coronavirus (PCR) (Negative) HEART Score - HEART Score Troponin: Troponin T < 0.010 ng/mL (0.00-0.029) 04/20/21 15:51
--- NOTE | 2021-04-22 14:16 | Consultation ---
History of Present Illness - Reason for Consult Consult date: 04/22/21 COVID-19 - History of Present Illness 80-year-old female with history of hypertension, dementia, admitted on 04/20/2021 secondary to 5-day history of altered mental status/lethargy, chest discomfort. Patient came to the ED 6 days before admission complaining of sore throat and was found to have pulmonary nodule and hypokalemia. On arrival, temperature of 100, HR 60, RR 16, O2 sat 100%, BP 175/71. Initial WBC 1.9. Hemoglobin 13.1. Platelets 127. D-dimer 589. CRP 3.4. Ferritin 839. Procalcitonin is low. Urinalysis negative. Urine drug screen negative. Blood cultures no growth today. CT chest shows no PE, noted multifocal pneumonia. Review of Systems: reviewed ED and H&P notes. Review of system deferred to minimize COVID-19 transmission. Medications and Allergies Allergies Allergy/AdvReac Type Severity Reaction Status Date / Time No Known Allergies Allergy Verified 04/20/21 09:42 Home Medications Medication Instructions Recorded Confirmed Last Taken Type Famotidine [Pepcid] 40 mg PO QHS #14 tablet 04/14/21 04/22/21 04/20/21 22:00 Rx Nystas/Diphen/Xyl Visc/Mylanta 30 ml MM Q4H PRN #300 ml 04/14/21 04/22/21 04/20/21 Rx [Magic Mouthwash] Active Meds: Active Medications Acetaminophen (Acetaminophen 325 Mg Tab) 650 mg PO Q4H PRN PRN Reason: Pain MILD(1-3)/Fever >100.5/MULLINS Dexamethasone (Dexamethasone 2 Mg Tab) 6 mg PO Q24HR OLLIE Stop: 04/30/21 10:01 Last Admin: 04/22/21 10:41 Dose: 6 mg Documented by: Famotidine (Famotidine 10 Mg Tab) 10 mg PO BID [facility] Last Admin: 04/22/21 10:42 Dose: 10 mg Documented by: Azithromycin (Zithromax/Ns) 500 mg in 250 mls @ 250 mls/hr IV Q24H OLLIE Stop: 04/24/21 17:59 Last Infusion: 04/21/21 22:37 Dose: Infused Documented by: Sodium Chloride (Nacl 0.9% 1000 Ml) 1,000 mls @ 100 mls/hr IV DIRECT OLLIE Last Admin: 04/22/21 07:30 Dose: 100 mls/hr Documented by: Ceftriaxone Sodium (Rocephin/Ns 1 Gm/50 Ml) 1 gm in 50 mls @ 100 mls/hr IV Q24H OLLIE Stop: 04/24/21 23:59 Last Infusion: 04/21/21 22:36 Dose: Infused Documented by: Potassium Chloride (Potassium Chloride Er 10 Meq Tab) 30 meq PO QDAY OLLIE Last Admin: 04/22/21 10:42 Dose: 30 meq Documented by: Physical Examination - Physical Exam Narrative exam: Physical exam deferred to minimize COVID-19 transmission during pandemic. - Constitutional Vitals: Vital Signs Temp Pulse Resp BP Pulse Ox 98.4 F 54 L 22 167/63 94 04/22/21 04:34 04/22/21 04:34 04/22/21 04:34 04/22/21 04:34 04/22/21 04:34 Temperature -Last 24 Hours Temperature 98.4 F Temperature 99.2 F Temperature 98.9 F Results - Labs CBC & Chem 7: 04/21/21 05:01 04/22/21 03:26 Labs: Abnormal lab results 04/21/21 04/22/21 04/22/21 Range/Units 08:43 03:26 09:42 D-Dimer 593.00 H (0-234) ng/mlDDU Potassium 3.3 L (3.6-5.0) mmol/L Creatinine 0.5 L (0.6-1.2) mg/dL Calcium 8.0 L (8.4-10.2) mg/dL Ferritin (10.0-200.0) ng/mL Lactate Dehydrogenase (91-180) units/L C-Reactive Protein (0.00-1.30) mg/dL Coronavirus (PCR) Positive A (Negative) 04/22/21 04/22/21 Range/Units 09:42 09:42 D-Dimer (0-234) ng/mlDDU Potassium (3.6-5.0) mmol/L Creatinine (0.6-1.2) mg/dL Calcium (8.4-10.2) mg/dL Ferritin 839.7 H (10.0-200.0) ng/mL Lactate Dehydrogenase 351 H (91-180) units/L C-Reactive Protein 3.40 H (0.00-1.30) mg/dL Coronavirus (PCR) (Negative) Assessment and Plan Cultures: Blood culture 04/20/2021 no growth today SARS CoV2 PCR positive Assessment: 80-year-old female with history of hypertension, dementia, admitted on 04/20/2021 secondary to 5-day history of altered mental status/lethargy, chest discomfort, initially with sore throat: #Sepsis: Present on admission with fever, neutropenia, likely secondary to COVID-19 infection. #COVID pneumonia: CT with bilateral multifocal pneumonia.. Infllammatory markers mildly elevated with CRP of 3.4. Patient is not hypoxic. Currently on room air. #Acute hypoxemic respiratory failure: Recommendations: -Exercise pulse oximeter - O2 sats after 6 minutes walk test inside room, if feasible, if she passes okay to discharge -No indication for dexamethasone or remdesivir, patient is not hypoxic -Monitor inflammatory markers - ferritin, Ddimer, CRP, LDH -Continue anticoagulation per System Protocol -Prone positioning as possible -Stop ceftriaxone and azithromycin, procalcitonin <0.25 ng/mL All laboratory, cultures and imaging were reviewed. Will follow Yana Daniels MD Infectious Diseases Material Spreader [facility] M [phone] O [phone]
[2021-04-22] MEDS: AZITHROMYCIN/NS 500 MG/250 ML 500 MG/250 ML BAG IV SCH (18:06)
[2021-04-22] MEDS: cefTRIAXone/NS 1 GM/50 ML 1 GM/50 ML BAG IV SCH (22:02)
[2021-04-23] MEDS ORDERED: hydrALAZINE 20 MG/1 ML INJ IV PRN (06:17)
[2021-04-23] MEDS: POTASSIUM CHLORIDE ER 10 MEQ TAB PO SCH (09:30)
[2021-04-23] MEDS: FAMOTIDINE 10 MG TAB PO SCH ×2 (09:31→23:07)
[2021-04-23] MEDS: DEXAMETHASONE 2 MG TAB PO SCH (09:31)
--- NOTE | 2021-04-23 12:57 | Progress Note ---
Assessment and Plan Acute metabolic encephalopathy -Likely due to underlying infection and with dementia -CT head showed no acute infarct but remote right occipital infarction -Continue to provide supportive care, monitor clinically with frequent neuro checks LLB PNA, likely aspiration vs COVID 19 pneumonia -Covid test is positive, DC empiric antibiotics as procalcitonin level <0.25 -No need for dexamethasone on remdesivir as patient resting on room air -Continue to follow inflammatory markers, ID following HTN, uncontrolled -Initiated oral medications and IV hydralazine as needed to keep SBP less than 160 Dementia, supportive care, frequent neuro check Hypokalemia, continue to replete, monitor BMP Hypophosphatemia, replete and monitor Leukopenia and thrombocytopenia, likely due to underlying infection versus chronic -Continue to monitor CBC Severe protein calorie malnutrition, consult dietary, add supplements DVT prophylaxis, SCD. No heparin or Lovenox for thrombocytopenia Daily Clinical course: 04/21: Continue to replete KCl, Covid test is pending. Continue empiric antibiotics for now. Follow procalcitonin level. 04/22/21; patient resting on room air, inflammatory markers are stable. Procalcitonin is normal -we will d/c abx. Discussed with patient nephew with POA. Patient has very advanced dementia with 24/7 care. According to patient's POA Mr. Badillo patient's symptom has been deteriorated in the last few months. They are willing for hospice placement, order placed. 04/23/21: Hospice has ordered but unable to set it up as assisted living facility would not accept the patient as she needs 24/7 care. We'll continue to follow. Discussed with patient's POA and given him clinical updates. PT evaluated the patient and recommended SNF placement. "Continue to follow, discharge pending on placement. Adjust BP meds as needed. Subjective Date of service: 04/23/21 Interval history: Patient seen and examined. Medical records and medication list reviewed. No acute event overnight noted by the RN. Patient appears more alert today, sitting on the bed and eating her lunch Discussed plan of care at bedside with patient's RN. Objective - Exam Narrative Exam: Limited physical exam due to COVID-19 pandemic to minimize transmission of the disease and to preserve PPE. Vital reviewed and stable. GENERAL: Elderly malnourished -[place] female sitting on bed without any distress HEENT: Normocephalic. Atraumatic. NECK: Supple. CHEST/LUNGS: breathing nonlabored. HEART/CARDIOVASCULAR: Heart rate stable on telemetry ABDOMEN: Visibly not distended SKIN: There is no rash NEURO: Moves extremities, very confused MUSCULOSKELETAL: No joint effusion EXTRIMITY: No swelling, no cyanosis or clubbing. + Tremor PSYCH: Not oriented to place person or time . - Constitutional Vitals: Vital Signs - 12hr 04/23/21 04/23/21 04/23/21 05:12 06:13 10:00 Temperature 98.6 F Pulse Rate 63 66 Respiratory 20 18 Rate Blood Pressure 186/75 165/74 O2 Sat by Pulse 94 97 94 Oximetry 04/23/21 11:53 Temperature 98.8 F Pulse Rate 62 Respiratory 18 Rate Blood Pressure 172/72 O2 Sat by Pulse 94 Oximetry - Labs CBC & Chem 7: 04/21/21 05:01 04/24/21 03:24 HEART Score - HEART Score Troponin: Troponin T < 0.010 ng/mL (0.00-0.029) 04/20/21 15:51
[2021-04-23] MEDS: hydrALAZINE 25 MG TAB PO SCH ×2 (13:51→23:06)
--- NOTE | 2021-04-23 14:25 | Progress Note ---
Assessment and Plan Cultures: Blood culture 04/20/2021 no growth today SARS CoV2 PCR positive Assessment: 80-year-old female with history of hypertension, dementia, admitted on 04/20/2021 secondary to 5-day history of altered mental status/lethargy, chest discomfort, initially with sore throat: #Sepsis: Present on admission with fever, neutropenia, likely secondary to COVID-19 infection. #COVID pneumonia: CT with bilateral multifocal pneumonia.. Infllammatory markers mildly elevated with CRP of 3.4. Patient is not hypoxic. Currently on room air. Recommendations: -No indication for dexamethasone or remdesivir, patient is not hypoxic -No indication for antibiotics -Continue anticoagulation per System Protocol Will sign off please call if any question Yana Daniels MD Infectious Diseases Fin[employer] [facility] M [phone] O [phone] Subjective Date of service: 04/23/21 Principal diagnosis: COVID-19 Interval history: Patient remains on room air. No desaturation. No fever. Objective - Exam Narrative Exam: Physical exam deferred to minimize COVID-19 transmission during pandemic. - Constitutional Vitals: Vital Signs Temp Pulse Resp BP Pulse Ox 98.8 F 62 18 172/72 94 04/23/21 11:53 04/23/21 11:53 04/23/21 11:53 04/23/21 11:53 04/23/21 11:53 Temperature -Last 24 Hours Temperature 98.8 F Temperature 98.6 F Temperature 98.2 F Temperature 97.9 F - Labs CBC & Chem 7: 04/21/21 05:01 04/22/21 03:26
[2021-04-23] MEDS ORDERED: POTASSIUM PHOSPHATE 15 MMOL in SODIUM CHLORIDE 0.9% 250ML 250 ML IV ONE (18:30)
[2021-04-24 05:16] LABS: BUN/Creatinine Ratio 40; Blood Urea Nitrogen 16 mg/dL (7-17); Calcium 8.8 mg/dL (8.4-10.2); Hemolysis Index 1
[2021-04-24] MEDS: hydrALAZINE 25 MG TAB PO SCH ×3 (06:22→21:32)
[2021-04-24] MEDS: POTASSIUM CHLORIDE ER 10 MEQ TAB PO SCH (09:24)
[2021-04-24] MEDS: FAMOTIDINE 10 MG TAB PO SCH ×2 (09:24→21:32)
--- NOTE | 2021-04-24 09:59 | Progress Note ---
Assessment and Plan Acute metabolic encephalopathy -Likely due to underlying infection and with dementia -CT head showed no acute infarct but remote right occipital infarction -Continue to provide supportive care, monitor clinically with frequent neuro checks LLB PNA, likely aspiration vs COVID 19 pneumonia -Covid test is positive, DC empiric antibiotics as procalcitonin level <0.25 -No need for dexamethasone on remdesivir as patient resting on room air -Continue to follow inflammatory markers, ID following HTN, uncontrolled -Initiated oral medications and IV hydralazine as needed to keep SBP less than 160 Dementia, supportive care, frequent neuro check Hypokalemia, continue to replete, monitor BMP Hypophosphatemia, replete and monitor Leukopenia and thrombocytopenia, likely due to underlying infection versus chronic -Continue to monitor CBC Severe protein calorie malnutrition, consult dietary, add supplements DVT prophylaxis, SCD. No heparin or Lovenox for thrombocytopenia Daily Clinical course: 04/21: Continue to replete KCl, Covid test is pending. Continue empiric antibiotics for now. Follow procalcitonin level. 04/22/21; patient resting on room air, inflammatory markers are stable. Procalcitonin is normal -we will d/c abx. Discussed with patient nephew with POA. Patient has very advanced dementia with 24/7 care. According to patient's POA Mr. Badillo patient's symptom has been deteriorated in the last few months. They are willing for hospice placement, order placed. 04/23/21: Hospice has ordered but unable to set it up as assisted living facility would not accept the patient as she needs 24/7 care and cannot be quarantined without supervision as she is tested positive for Covid. Discussed with patient's POA and given him clinical updates. PT evaluated the patient and recommended SNF placement. "Continue to follow, discharge pending on placement. Adjust BP meds as needed. 04/24/21: pending placement, remains on room air, continue to follow clinically Subjective Date of service: 04/24/21 Principal diagnosis: COVID-19 Interval history: Patient seen and examined. Medical records and medication list reviewed. No acute event overnight noted by the RN. Patient appears more alert and awake but remains confused Discussed plan of care at bedside with patient's RN. Objective - Exam Narrative Exam: Limited physical exam due to COVID-19 pandemic to minimize transmission of the disease and to preserve PPE. Vital reviewed and stable. GENERAL: Elderly malnourished -[place] female sitting on bed without any distress HEENT: Normocephalic. Atraumatic. NECK: Supple. CHEST/LUNGS: breathing nonlabored. HEART/CARDIOVASCULAR: Heart rate stable on telemetry ABDOMEN: Visibly not distended SKIN: There is no rash NEURO: Moves extremities, confused MUSCULOSKELETAL: No joint effusion EXTRIMITY: No swelling, no cyanosis or clubbing. + Tremor PSYCH: Not oriented to place or time - Constitutional Vitals: Vital Signs - 12hr 04/23/21 04/24/21 04/24/21 22:41 00:31 05:48 Temperature 98.5 F 98.0 F Pulse Rate 64 70 68 Respiratory 20 18 20 Rate Blood Pressure 178/88 140/57 170/75 O2 Sat by Pulse 92 92 93 Oximetry 04/24/21 09:09 Temperature Pulse Rate Respiratory Rate Blood Pressure O2 Sat by Pulse 92 Oximetry - Labs CBC & Chem 7: 04/21/21 05:01 04/24/21 03:24 Labs: Abnormal lab results 04/23/21 04/24/21 04/24/21 Range/Units 15:39 03:24 08:31 Potassium 3.3 L (3.6-5.0) mmol/L Chloride 107.4 H (98-107) mmol/L Carbon Dioxide 19 L D (22-30) mmol/L Creatinine 0.4 L (0.6-1.2) mg/dL Phosphorus 2.40 L 2.00 L (2.5-4.5) mg/dL HEART Score - HEART Score Troponin: Troponin T < 0.010 ng/mL (0.00-0.029) 04/20/21 15:51
[2021-04-24] MEDS: guaiFENesin ER 600 MG TAB PO SCH (21:33)
[2021-04-25] MEDS: hydrALAZINE 25 MG TAB PO SCH (06:31)
--- NOTE | 2021-04-25 11:03 | Progress Note ---
Assessment and Plan Acute metabolic encephalopathy -Likely due to underlying infection and with dementia -CT head showed no acute infarct but remote right occipital infarction -Continue to provide supportive care, monitor clinically with frequent neuro checks LLB PNA, likely aspiration vs COVID 19 pneumonia -Covid test is positive, DC empiric antibiotics as procalcitonin level <0.25 -No need for dexamethasone on remdesivir as patient resting on room air -Continue to follow inflammatory markers, ID following HTN, uncontrolled -Initiated oral medications and IV hydralazine as needed to keep SBP less than 160 Dementia, supportive care, frequent neuro check Hypokalemia, continue to replete, monitor BMP Hypophosphatemia, replete and monitor Leukopenia and thrombocytopenia, likely due to underlying infection versus chronic -Continue to monitor CBC Severe protein calorie malnutrition, consult dietary, add supplements DVT prophylaxis, SCD. No heparin or Lovenox for thrombocytopenia Daily Clinical course: 04/21: Continue to replete KCl, Covid test is pending. Continue empiric antibiotics for now. Follow procalcitonin level. 04/22/21; patient resting on room air, inflammatory markers are stable. Procalcitonin is normal -we will d/c abx. Discussed with patient nephew with POA. Patient has very advanced dementia with 24/7 care. According to patient's POA Mr. Badillo patient's symptom has been deteriorated in the last few months. They are willing for hospice placement, order placed. 04/23/21: Hospice has ordered but unable to set it up as assisted living facility would not accept the patient as she needs 24/7 care and cannot be quarantined without supervision as she is tested positive for Covid. Discussed with patient's POA and given him clinical updates. PT evaluated the patient and recommended SNF placement. "Continue to follow, discharge pending on placement. Adjust BP meds as needed. 04/24/21: Pending placement, remains on room air, continue to follow clinically 04/25/21: clinically stable, no acute issue, cont to replace K, follow BMP, pending placement. Patient remains on room air. Subjective Date of service: 04/25/21 Principal diagnosis: COVID-19 Interval history: Patient seen and examined. Medical records and medication list reviewed. No acute event overnight noted by the RN. Patient appears more alert and awake Discussed plan of care at bedside with patient's RN. Objective - Exam Narrative Exam: Limited physical exam due to COVID-19 pandemic to minimize transmission of the disease and to preserve PPE. Vital reviewed and stable. GENERAL: Elderly malnourished -[place] female sitting on bed without any distress HEENT: Normocephalic. Atraumatic. NECK: Supple. CHEST/LUNGS: breathing nonlabored. HEART/CARDIOVASCULAR: Heart rate stable on telemetry ABDOMEN: Visibly not distended SKIN: There is no rash NEURO: Moves extremities, confused MUSCULOSKELETAL: No joint effusion EXTRIMITY: No swelling, no cyanosis or clubbing. + Tremor PSYCH: Not oriented to place or time - Constitutional Vitals: Vital Signs - 12hr 04/25/21 04/25/21 04/25/21 04:36 06:31 09:15 Temperature 97.7 F Pulse Rate 71 71 Respiratory 18 Rate Blood Pressure 165/87 165/87 O2 Sat by Pulse 96 96 Oximetry - Labs CBC & Chem 7: 04/21/21 05:01 04/25/21 13:30 HEART Score - HEART Score Troponin: Troponin T < 0.010 ng/mL (0.00-0.029) 04/20/21 15:51
[2021-04-25] MEDS: POTASSIUM CHLORIDE ER 10 MEQ TAB PO SCH (11:12)
[2021-04-25] MEDS: guaiFENesin ER 600 MG TAB PO SCH ×2 (11:12→23:28)
[2021-04-25] MEDS: FAMOTIDINE 10 MG TAB PO SCH ×2 (11:13→23:28)
[2021-04-25] MEDS: hydrALAZINE 100 MG TAB PO SCH ×2 (11:13→23:28)
[2021-04-26] MEDS: hydrALAZINE 100 MG TAB PO SCH ×3 (06:00→23:04)
[2021-04-26] MEDS: FAMOTIDINE 10 MG TAB PO SCH ×2 (10:21→23:04)
[2021-04-26] MEDS: guaiFENesin ER 600 MG TAB PO SCH ×2 (10:21→23:04)
[2021-04-26] MEDS: POTASSIUM CHLORIDE ER 10 MEQ TAB PO SCH (10:22)
--- NOTE | 2021-04-26 15:48 | Progress Note ---
Assessment and Plan Acute metabolic encephalopathy -Likely due to underlying infection and with dementia -CT head showed no acute infarct but remote right occipital infarction -Continue to provide supportive care, monitor clinically with frequent neuro checks LLB PNA, likely aspiration vs COVID 19 pneumonia -Covid test is positive, DC empiric antibiotics as procalcitonin level <0.25 -No need for dexamethasone on remdesivir as patient resting on room air -Continue to follow inflammatory markers, ID following HTN, uncontrolled -Initiated oral medications and IV hydralazine as needed to keep SBP less than 160 Dementia, supportive care, frequent neuro check Hypokalemia, continue to replete, monitor BMP Hypophosphatemia, replete and monitor Leukopenia and thrombocytopenia, likely due to underlying infection versus chronic -Continue to monitor CBC Severe protein calorie malnutrition, consult dietary, add supplements DVT prophylaxis, SCD. No heparin or Lovenox for thrombocytopenia Daily Clinical course: 04/21: Continue to replete KCl, Covid test is pending. Continue empiric antibiotics for now. Follow procalcitonin level. 04/22/21; patient resting on room air, inflammatory markers are stable. Procalcitonin is normal -we will d/c abx. Discussed with patient nephew with POA. Patient has very advanced dementia with 24/7 care. According to patient's POA Mr. Badillo patient's symptom has been deteriorated in the last few months. They are willing for hospice placement, order placed. 04/23/21: Hospice has ordered but unable to set it up as assisted living facility would not accept the patient as she needs 24/7 care and cannot be quarantined without supervision as she is tested positive for Covid. Discussed with patient's POA and given him clinical updates. PT evaluated the patient and recommended SNF placement. "Continue to follow, discharge pending on placement. Adjust BP meds as needed. 04/24/21: Pending placement, remains on room air, continue to follow clinically 04/25/21: clinically stable, no acute issue, cont to replace K, follow BMP, pending placement. Patient remains on room air. 04/26/21: Remains on room air, pending senior living placement. Continue to follow BMP and inflammatory markers. Subjective Date of service: 04/26/21 Principal diagnosis: COVID-19 Interval history: Patient seen and examined. Medical records and medication list reviewed. No acute event overnight noted by the RN. Patient appears more alert and awake Discussed plan of care at bedside with patient's RN. Objective - Exam Narrative Exam: Limited physical exam due to COVID-19 pandemic to minimize transmission of the disease and to preserve PPE. Vital reviewed and stable. GENERAL: Elderly malnourished -[place] female sitting on bed without any distress HEENT: Normocephalic. Atraumatic. NECK: Supple. CHEST/LUNGS: breathing nonlabored. HEART/CARDIOVASCULAR: Heart rate stable on telemetry ABDOMEN: Visibly not distended SKIN: There is no rash NEURO: Moves extremities, confused MUSCULOSKELETAL: No joint effusion EXTRIMITY: No swelling, no cyanosis or clubbing. + Tremor PSYCH: Not oriented to place or time - Constitutional Vitals: Vital Signs - 12hr 04/26/21 04/26/21 04/26/21 04:57 09:34 10:00 Temperature 98.5 F Pulse Rate 66 Respiratory 18 Rate Blood Pressure 144/62 O2 Sat by Pulse 95 95 96 Oximetry 04/26/21 12:51 Temperature 68.0 F L Pulse Rate 84 Respiratory 20 Rate Blood Pressure 174/77 O2 Sat by Pulse 94 Oximetry - Labs CBC & Chem 7: 04/21/21 05:01 04/25/21 13:30 HEART Score - HEART Score Troponin: Troponin T < 0.010 ng/mL (0.00-0.029) 04/20/21 15:51
[2021-04-27] MEDS: hydrALAZINE 100 MG TAB PO SCH ×2 (06:00→13:51)
[2021-04-27] MEDS: FAMOTIDINE 10 MG TAB PO SCH (10:51)
[2021-04-27] MEDS: guaiFENesin ER 600 MG TAB PO SCH (10:51)
[2021-04-27] MEDS: POTASSIUM CHLORIDE ER 10 MEQ TAB PO SCH (10:51)
[2021-04-27 11:25] LABS: Blood Urea Nitrogen 16 mg/dL (7-17); Calcium 8.7 mg/dL (8.4-10.2); Hemolysis Index 6
[2021-04-27 11:28] LABS: Hematocrit 36.2 % (30.3-42.9); Hemoglobin 12.4 gm/dl (10.1-14.3); Mean Corpuscular HGB Conc 34 % (30-34); Mean Corpuscular Volume 85 fl (79-97); Platelet Count 305 K/mm3 (140-440); Red Blood Count 4.27 M/mm3 (3.65-5.03); Red Cell Distribution Width 13.1 % (13.2-15.2)
[2021-04-27 11:29] LABS: BUN/Creatinine Ratio 32
[2021-04-27 13:34] VITALS: BP 151/74
--- NOTE | 2021-04-27 14:22 | Discharge Summary ---
Providers - Providers Date of Admission: 04/20/21 16:10 Date of discharge: 04/27/21 Attending physician: MARS MEJIAS 04/22/21 08:00 Consult to Physician [CONS] Routine Comment: Consulting Provider: ARELY TRAN Physician Instructions: Reason For Exam: covid PNA 04/22/21 08:02 Physical Therapy Evaluation and Treat [CONS] Routine Comment: Reason For Exam: debility 04/22/21 14:04 Consult to Case Management [CONS] Routine Services Needed at Discharge: Other Notified:: catrina Additional Physician Instructions: hospice 04/24/21 08:30 Consult to Case Management [CONS] Routine Services Needed at Discharge: Other Notified:: catrina Additional Physician Instructions: SNF placement Primary care physician: [employer] HEL[employer] Hospitalization Condition: Fair Disposition: 30 STILL A PATIENT Final Discharge Diagnosis (Prints w/discharge instructions): --Acute metabolic encephalopathy, Likely due to underlying infection and with dementia. --LLB PNA, likely aspiration vs COVID 19 pneumonia. --HTN, uncontrolled. --Dementia, supportive care. --Hypokalemia. --Hypophosphatemia. --Leukopenia and thrombocytopenia. --Severe protein calorie malnutrition Time spent for discharge: 34 minutes Exam - Constitutional Vitals: Temp Pulse Resp BP Pulse Ox 97.5 F L 78 18 151/74 96 04/27/21 13:33 04/27/21 13:33 04/27/21 13:33 04/27/21 13:33 04/27/21 13:33 Plan Activity: advance as tolerated Diet: low fat, low salt Follow up with: PRIMARY CAREMD [Primary Care Provider] - 3-5 Days
== END 2021-04-27 15:00 | DRG 871 ==
LOC: ED 09:28 → 3A 16:10
PROVIDERS: ADMIT Internal Medicine; ATTEND Internal Medicine
DX: A41.9 Sepsis, unspecified organism (principal); U07.1 COVID-19; J12.82 Pneumonia due to coronavirus disease 2019; J96.01 Acute respiratory failure with hypoxia; G93.41 Metabolic encephalopathy; E43 Unspecified severe protein-calorie malnutrition; J69.0 Pneumonitis due to inhalation of food and vomit; Z68.1 Body mass index [BMI] 19.9 or less, adult; D69.6 Thrombocytopenia, unspecified; F03.90 Unspecified dementia, unspecified severity, without behavioral disturbance, psychotic disturbance, mood disturbance, and anxiety; I10 Essential (primary) hypertension; E87.6 Hypokalemia; E83.39 Other disorders of phosphorus metabolism
CPT/HCPCS: 36415; 70450; 71045; 71275; 80048; 80053; 80307; 81001; 82140; 82728; 83615; 83735; 84100; 84132; 84145; 84443; 84484; 85007; 85025; 85027; 85379; 86140; 87040; 93005; 94760; G0378; J0360; J0456; J0696; J7030; J7050; J8540; Q9967; U0003